=== PATIENT | female | born 1955 | race Caucasian/White ===

== ENCOUNTER 2023-04-18 08:57 | Outpatient (CLI) | payer OTHER | END 2023-04-18 08:58 | disposition home or self-care (01) | LOC: CSHULT 08:57 | PROVIDERS: ATTEND Student in an Organized Health Care Education/Training Program | DX: R10.9 Unspecified abdominal pain (principal); K76.0 Fatty (change of) liver, not elsewhere classified | CPT/HCPCS: 76700 ==